=== PATIENT | male | born 1970 | race Caucasian/White ===

== ENCOUNTER 2023-06-10 10:09 | Outpatient (CLI) | payer BC, SELFPAY ==
--- NOTE | 2023-06-10 10:15 | CRLHL7_ITS ---
For Patients: As a result of the Cures Act, medical imaging exams and procedure reports are released immediately into your electronic medical record. You may view this report before your referring provider. If you have questions, please contact your health care provider. Indication: Injury and pain Technique: Right ankle 3 views. Comparison: None Findings: Bones: Alignment is normal. No fractures or bone lesions. Joint spaces: Unremarkable. Soft tissues: Soft tissue swelling. Impression: No sign of acute osseous injury. Dictated by Leroy Malhotra MD @ 06/11/2023 8:49:38 AM (Electronically Signed)
== END 2023-06-10 10:10 | disposition home or self-care (01) ==
LOC: RAD 10:12
PROVIDERS: Visit Provider Emergency Medicine Emergency Medical Services
DX: M25.571 Pain in right ankle and joints of right foot (principal)
CPT/HCPCS: 73610

== ENCOUNTER 2023-10-22 15:15 | Outpatient (RCR) | payer BC, SELFPAY | END 2023-11-07 15:28 | disposition home or self-care (01) | PROVIDERS: Visit Provider Family Medicine | DX: M25.371 Other instability, right ankle (principal); Z51.89 Encounter for other specified aftercare | CPT/HCPCS: 97110; 97161 ==

== ENCOUNTER 2024-11-24 07:59 | Outpatient (CLI) | payer BC, SELFPAY | END 2024-11-24 08:00 | disposition home or self-care (01) | LOC: NM 08:01 | PROVIDERS: PCP Surgery; Visit Provider Internal Medicine Gastroenterology | DX: K21.9 Gastro-esophageal reflux disease without esophagitis (principal); T17.908A Unspecified foreign body in respiratory tract, part unspecified causing other injury, initial encounter; R10.13 Epigastric pain | CPT/HCPCS: 78264; A9541 ==

== ENCOUNTER 2024-12-02 08:04 | Outpatient (CLI) | payer BC, SELFPAY ==
--- NOTE | 2024-12-02 08:15 | CRLHL7_ITS ---
For Patients: As a result of the Century Cures Act, medical imaging exams and procedure reports are released immediately into your electronic medical record. You may view this report before your referring provider. If you have questions, please contact your health care provider. INDICATION : GE reflux TECHNIQUE : Double-contrast upper GI. Fluoroscopy time: 2.18 minutes. COMPARISON : No comparison FINDINGS : Note: This is a remote interpretation. The exam was performed by my physician medical receptionist medical assistant. This report agrees with his preliminary interpretation. Esophageal lumen: Normal caliber. No signs of obvious mass or stricture. Gastroesophageal junction: Moderate size sliding hiatal hernia. The GE junction is widely patent. Esophageal motility: Fluoroscopically unremarkable. Gastroesophageal reflux: Spontaneous reflux to the level of the upper esophagus with distention of the hiatal hernia. Miscellaneous: Air-contrast views of the stomach are unremarkable. Small bowel is normal caliber. IMPRESSION : 1. Moderate-size sliding hiatal hernia with distention and spontaneous gastroesophageal reflux. 2. No esophageal stricture identified. 3. Motility appears normal. Dictated by Isaac Shukla MD @ 12/03/2024 8:19:26 AM (Electronically Signed)
== END 2024-12-02 08:05 | disposition home or self-care (01) ==
LOC: RAD 08:04
PROVIDERS: PCP Surgery; Visit Provider Internal Medicine Gastroenterology
DX: K21.9 Gastro-esophageal reflux disease without esophagitis (principal); K44.9 Diaphragmatic hernia without obstruction or gangrene; R10.13 Epigastric pain; T17.908A Unspecified foreign body in respiratory tract, part unspecified causing other injury, initial encounter
CPT/HCPCS: 74246

== ENCOUNTER 2025-01-15 07:30 | Outpatient (RCR) | payer BC, SELFPAY | END 2025-01-21 11:37 | disposition home or self-care (01) | PROVIDERS: PCP Surgery; Visit Provider Orthopaedic Surgery Foot and Ankle Surgery | DX: Z51.89 Encounter for other specified aftercare (principal); Z47.89 Encounter for other orthopedic aftercare; Z98.890 Other specified postprocedural states | CPT/HCPCS: 97110; 97140; 97161 ==

== ENCOUNTER 2025-05-25 21:47 | Emergency (ER) | payer BC, SELFPAY ==
--- OUTSIDE RECORDS SUMMARY | 2025-05-25 21:48 | XMS_ITS | Clinical Summary ---
Author Organization [facility] Address [address] [place] [address] Care Team Providers Care Tubing Mill Setter Name Role Phone Bernabe Gonsalves MD Primary Care Provider [phone] Allergies No known active allergies Medications aspirin chewable 81 mg chewable tablet Chew 81 mg by mouth once daily. Active omeprazole 20 mg tabletIndications: Gastroesophageal reflux disease, unspecified whether esophagitis present Take 1 Tablet (20 mg) by mouth once daily before a meal. 30 Tablet 08/18/20 24 Active rosuvastatin 5 mg tabletIndications: Hyperlipidemia, unspecified hyperlipidemia type TAKE 1 TABLET (5 MG) BY MOUTH AT BEDTIME. 90 Tablet 2 02/01/20 25 Active environmental health nurse (Dexcom G7 Planting Machine Operator) for continuous blood glucose monitor (CGM)Indications:T ype 2 diabetes mellitus without complication, without long-term current use of insulin (HC) This is for the glucose BRANCH COORDINATOR , also order the sensors. 1 Each 02/24/20 25 Active sensor (Dexcom G7 Sensor) for continuous blood glucose monitor (CGM)Indications:T ype 2 diabetes mellitus without complication, without long-term current use of insulin (HC) To be used to read blood sugars, change sensor every 10 days. This is for the glucose SENSOR, also order the environmental health nurse. 9 Each 3 02/24/20 25 Active citalopram (CELEXA) 10 mg tabletIndications: Dysthymia TAKE 1 TABLET (10 MG) BY MOUTH ONCE DAILY. 90 Tablet 1 05/02/20 25 Active citalopram 10 mg tabletIndications: Dysthymia TAKE 1 TABLET (10 MG) BY MOUTH ONCE DAILY. 90 Tablet 02/01/20 25 025 Discontinued azithromycin (ZITHROMAX) 250 mg tabletIndications: Counseling for travel Take 2 Tablets (500 mg) by mouth once daily for 3 days. For traveler's diarrhea. 6 Tablet 04/22/20 25 025 Active Problems Problem Noted Date Diagnosed Date s/p right ankle arthroscopy and debridement with microfracture of lateral talus osteochondral lesion, open lateral ligament repair. DOS: 11/05/24. Dr. Camarillo 11/25/2024 Type 2 diabetes mellitus wit hout complication, without long-term current use of insulin 10/15/2024 Adenomatous colon polyp 03/22/2021 Overview (03/22/2021): Colonoscopy 03/2021 2 polyps, repeat in 5 years Family history of colon cancer 03/22/2021 Overview (03/22/2021): Colonoscopy 03/2021 2 polyps, repeat in 5 years Obstructive sleep apnea syndrome in adult 2020 Essential hypertension 04/24/2019 Attention-deficit hyperactiv ity disorder, predominantly inattentive type 04/30/2017 01/16/2023 Dysthymia 09/15/2015 Encounters Date Type Department Care Team Description 04/29/2025 Refill [facility] [address] [place] [address] Bernabe Gonsalves MD Refill Request (Citalopram) 04/22/2025 2:00 PM CDT Office Visit [facility] [address] [place] [address] Bernabe Gonsalves MD Travel ([place]/Yellow fever /05/01-05/15/2025); Immunization/Injectio n 04/21/2025 Travel 02/22/2025 Refill [facility] [address] [place] [address] Bernabe Gonsalves MD Refill Request (Dexcom G7 sensor 10 day dev) from Last 3 Months Immunizations Immunization Administration Dates Next Due COVID-19 VACCINE SPIKEVAX (Alisha DELGADO 50MCG/0.5ML) 12YO+ PFS 09/13/2023 COVID-19 vaccine (Inventalator-Bio NTech 30mcg/0.3mL) PF, MDV 10/25/2020,10/05/2020 HepA-HepB (Twinrix) 04/22/2025 Hepatitis B (Adult) 08/20/2013 Influenza A (H1N1), Inactivated 08/10/2009 Influenza Intradermal PF 18-64 yrs 07/18/2016 Influenza, IIV3 (Age >=3 years) 07/16/2024 Influenza, IIV4 08/08/2023,,08/06/2019,2016,07/12/2015 Influenza, IIV4 (=>6mos) MDV 07/20/2020 Influenza,LAIV4 Live Intrana dejah (Flumist) 07/15/2014,07/21/2013,07/15/2012,2010 Td (Age >=7 Years) 02/07/2024 Td, Preservative Free (age > = 7 Years) 09/22/2010 Tdap 10/01/2012 Typhoid (injectable) 04/22/2025 Yellow Fever 04/22/2025 Zoster (Shingrix-RZV, recombinant) 08/13/2022, Family History Medical History Relation Name Comments Cancer-colon Father Relation Name Status Comments Father Social History Tobacco Use Types Packs/Day Years Used Date Smoking Tobacco: Never Smokeless Tobacco: Never Tobacco Cessation:Counseling Given: Yes Alcohol Use Standard Drinks/Week Comments Yes 0 (1 standard drink = 0.6 oz pur e alcohol) very occasional PHQ-2 Answer Date Recorded PHQ-2 TOTAL SCORE 0 02/01/2025 Social Connections Answer Date Recorded Do you often feel lonely or isolated from those around you? 0 02/07/2024 Financial Resource Strain Answer Date R ecorded Difficulty of Paying Living Expenses 3 02/07/2024 Difficulty of Paying Living Expenses Not on file 02/07/2024 Food Insecurity Answer Date Recorded Do you worry your food will run out before you are able to buy more? 1 02/07/2024 Transportation Needs Answer Date Record ed Does lack of transportation keep you from medica l appointments? 1 02/07/2024 Does lack of transportation keep you from work, meetings or getting things that you need? 1 02/07/2024 Housing Stability Answer Date Recorded What is your housing situation today? 1 02/07/2024 Utilities Answer Date Recorded Do you have trouble paying f or utilities (for example, heat, electricity, water, phone)? 1 02/07/2024 Sex and Gender Information Value Date Recorded Sex Assigned at Male 01/05/2021 1:06 PM CDT Legal Sex Male 2:10 PM CDT Gender Identity Male 01/05/2021 1:06 PM CDT Sexual Orientation Straight 01/05/2021 1: 06 PM CDT Obstetrics History Last Filed Vital Signs Vital Sign Reading Time Taken Comments Blood Pressure 123/84 04/22/2025 2:23 PM CDT Pulse 77 04/22/2025 2:23 PM CDT Temperature 36.3 C (97.4 F) 04/22/2025 2:23 PM CDT Respiratory Rate 16 03/21/2021 9:30 AM CDT Oxygen Saturation 98% 04/22/2025 2:23 PM CDT Inhaled Oxygen Concentration - - Weight 105.5 kg (232 lb 8 oz) 04/22/2025 2:23 PM CDT Height 187 cm (6' 1.62) 02/07/2024 8:51 AM CDT Body Mass Index 30.16 02/07/2024 8:51 AM CDT Plan of Treatment Upcoming Encounters Date Type Department Care Team (Late st Contact Info) Description 06/08/2025 3:15 PM CDT Office Visit [facility] [address] [place] [address] Bernabe Gonsalves MD [address] [place] [address] Scheduled Procedures Name Priority Associated Diagnoses Date/Ti me SURGICAL PROCEDURE (TYPE PRO CEDURE DESCRIPTION BELOW) Elective Ankle instability, right Synovitis of right ankle Chronic pain of right ankle Health Maintenance Due Date Last Done Comments Pneumococcal series for age 50+ (1 of 2 - PCV) 02/14/1991 BMI (ht and wt on same day) for age 18+ 02/06/2025 02/07/2024, 03/27/2022, 10/19/2019 Influenza Vaccine (#1) 2025 , 08/08/2023, 06/20/2021, Additional history exists Hepatitis B series for 19+ ( 3 of 3 - 19+ 3-dose series) 06/17/2025 04/22/2025, 08/20/2013 Depression screening for age 12+ 02/01/2026 02/01/2025, 01/29/2025, 02/07/2024, Additional history exists Colonoscopy through age 75 03/21/202603/21, 03/21/2021, 03/21/2021, Additional history exists Lipids for age 45-75 05/27/2029 05/27/2024, 02/07/2024, 03/27/2022, Additional history exists Tetanus booster 02/06/2034 02/07/2024, 09/13, 09/22/2010 Hepatitis C screening for ag e 18-79 Completed 03/27/2022 Zoster (shingles) series for age 50+ Completed 08/13/2022, 03/27/2022 HIV for age 15-65 Completed 02/07/2024 COVID-19 vaccine series Completed 07/16/20 24, 09/13/2023, 07/20/2021, Additional history exists Procedures Procedure Name Priority Date/Time Associated Diagnosis Comments LIPID PANEL Routine 05/27/2024 7:41 AM CDT Hyperlipidemia, unspecified hyperlipidemia type ANTI HIV 1/2 Routine 02/07/2024 9:42 AM CDT Screening for HIV (human immunodeficiency virus) ANTI HCV Routine 03/27/2022 5:05 PM CDT Need for hepatitis C screening test COLONOSCOPY SCREENING Routine 03/21/2021 8:32 AM CDT Family history of colon cancer from Last 3 Months or Most Recently Relevant to Health Maintenance Results * (ABNORMAL) LIPID PANEL (05/27/2024 7:41 AM CDT) Pathologist [facility] CHOLESTEROL,TOTAL 155 100 - 199 mg/dL 05/27/2024 2:05 PM CDT [facility] Comment: Cholesterol, Total Reference Ranges Desirable <200 mg/dL Borderline 200-239 mg/dL High >=240 mg/dL TRIGLYCERIDES 76 <150 mg/dL 05/27/2024 2:05 PM CDT [facility] HDL CHOLESTEROL 40(L) >40 mg/dL 2:05 PM CDT [facility] NON-HDL CHOLESTEROL 115 <145 mg/dl 05/27/2024 2:05 PM CDT [facility] CHOL/HDL RATIO 3.88 <4.50 05/27/2024 2:05 PM CDT [facility] LDL CHOLESTEROL 100 <=130 mg/dL 05/27/2024 2:05 PM CDT [facility] VLDL CHOLESTEROL 15 <=30 mg/dL 05/27/2024 2:05 PM CDT [facility] PROVIDER ORDERED STATUS FASTING 05/27/2024 2:05 PM CDT [facility] Blood BLOOD SPECIMEN / Unknown Venipuncture / Unknown 05/27/2024 7:41 AM CDT 05/27/2024 7:42 AM CDT Bernabe Gonsalves MD CHEMISTRY Final Resu lt [facility] [address] [place] [address], [place] * ANTI HIV 1/2 [95288.0] (02/07/2024 9:42 AM CDT) HIV-1/HIV-2 SCREEN Non-Reacti ve Non-Reacti ve 02/07/2024 4:34 PM CDT [facility] Comment:HIV-1 p24 and HIV-1/ HIV-2 Ab Not Detected. Blood BLOOD SPECIMEN / Unknown Venipuncture / Unknown 02/07/2024 9:42 AM CDT 02/07/2024 9:44 AM CDT Bernabe Gonsalves MD SEND OUTS Final Resu lt Performing Organization Address City/[facility]/ZIP Co de Phone Number [facility] [address] [place] [address], [place] * ANTI HCV (03/27/2022 5:05 PM CDT) HEPATITIS C ANTIBODY Non-React josefa Non-React josefa 03/28/2022 4:14 PM CDT [facility] Comment:Antibodies to HCV no t detected; does not exclude the possibility of exposure to HCV. Blood BLOOD SPECIMEN / Unknown Venipuncture / Unknown 03/27/2022 5:05 PM CDT 03/27/2022 5:05 PM CDT Bernabe Gonsalves MD SEND OUTS Final Resu lt Performing Organization Address [facility]/ZIP Co de Phone Number [facility] [address] [place] [address], [place] * COLONOSCOPY (03/21/2021 8:43 AM CDT) 03/21/2021 8:43 AM CDT Narrative Transcriptions Chucho Elmore MD - 03/21/2021 9:38 AM CDT Patient Name: Lreoy Malhotra Procedure Date: 03/21/2021 Gender: Male Date of : 1970 Admit Type: Outpatient Procedure: Colonoscopy Proceduralist: Chucho Elmore MD , Ada Pennington (Nurse) Referring MD: Bernabe Gonsalves Indications/Pre-Op Diagnosis: Screening in patient at increased risk: Colorectal cancer in father before age 60,Last colonoscopy: October 2015 Medications: Fentanyl 100 micrograms IV, Midazolam 4 mgIV, The level of sedation administered wasmoderate Procedure Description: The patient had risks, benefits and alternatives explained to andgave informed consent. The patient had a stable cardiopulmonary status and judged an adequate candidate for conscious sedation. The Colon CF-H180AL [id number] was passed through the anus and advancedto 6 cm into the ileum. The colonoscopy was performed withoutdifficulty. The patient tolerated the procedure well. The quality of the bowel preparation was good. The terminal ileum, ileocecal valve,appendiceal orifice, and rectum were photographed. Complications: No immediate complications. Estimated Blood Loss & Specimen: Estimated blood loss: none. Specimen collected - Yes and sent to Laboratory Findings: The perianal and digital rectal examinations were normal. A 3 mm polyp was found in the rectum. The polyp was sessile. Thepolyp was removed with a cold biopsy forceps. Resection and retrieval were complete. A 3 mm polyp was found in the sigmoid colon. The polyp was sessile.The polyp was removed with a cold snare. Resection and retrieval were complete. The exam was otherwise without abnormality on direct and retroflexion views. Impressions/Post-Op Diagnosis: - One 3 mm polyp in the rectum, removed with a cold biopsy forceps. Resected and retrieved. - One 3 mm polyp in the sigmoid colon, removed with a cold snare. Resected and retrieved. - The examination was otherwise normal on direct and retroflexionviews. Recommendation: - Patient has a contact number available for emergencies. The signsand symptoms of potential delayed complications were discussed with the patient. Return to normal activities tomorrow. Written discharge instructions were provided to the patient. - Resume previous diet. - Continue present medications. - Await pathology results. - Repeat colonoscopy in 5 years. Moderate Sedation: Moderate (conscious) sedation was administered by the endoscopy nurse and supervised by the endoscopist. The following parameters were monitored: oxygen saturation, heart rate, respiratory rate, blood pressure, adequacy of pulmonary ventilation and reponse to care. Please refer to the patient's medical record flowsheets and nursing notes for moderate sedation details. Total physician intraservice time was 20 minutes. Chucho Elmore MD 03/21/2021 9:37:43 AM This report has been signed electronically. Note Initiated On: 03/21/2021 8:43 AM Procedure Code(s): --- Professional --- 31335, Colonoscopy, flexible; with removalof tumor(s), polyp(s), or other lesion(s) bysnare technique 60771, 59, Colonoscopy, flexible; withbiopsy, single or multiple Diagnosis Code(s): --- Professional --- Z80.0, Family history of malignant neoplasmof digestive organs K62.1, Rectal polyp K63.5, Polyp of colon CPT copyright 2020 [employer]. All rights reserved. The codes documented in this report are preliminary and upon tubing mill setter reviewmay be revised to meet current compliance requirements. Scope In: 9:14:11 AM Scope Withdrawal Time 0 hours 11 minutes 33 seconds Scope Out: 9:31:45 AM Chucho Elmore MD PROCEDURE ORD Final Res ult from Last 3 Months or Most Recently Relevant to Health Maintenance Insurance [facility] Care Teams Tubing Mill Setter Relationship Specialty Start Date End Date Bernabe Gonsalves MD [address] [place] [address] PCP - General Family Practice 03/01/22
--- OUTSIDE RECORDS SUMMARY | 2025-05-25 21:48 | XMS_ITS | Clinical Summary ---
Author Organization [facility] Address [address] [place] [address] Care Team Providers Care Net Software Engineer Name Role Phone Bernabe Gonsalves MD Primary Care Provider [phone] Allergies No known active allergies Medications citalopram (CELEXA) 10 MG tablet Take 1 tablet by mouth daily 5 Active oxyCODONE (ROXICODONE) 5 MG tabletIndicatio ns:Post-op pain Take 1-2 tablets (5-10 mg) by mouth every 4 hours as needed for moderate to severe pain 12 tablet 3 Active senna-docusate (SENOKOT-S/MONICA COLACE) 8.6-50 MG tabletIndicatio ns:Post-op pain Take 1-2 tablets by mouth 2 times daily as needed for constipation (While on oral opioids.) 20 tablet 3 Active Social History Tobacco Use Types Packs/Day Years Used Date Smoking Tobacco: Never Smokeless Tobacco: Never Tobacco Cessation:Counseling Given: Not Answered Alcohol Use Standard Drinks/Week Comments Yes 0 (1 standard drink = 0.6 oz pur e alcohol) rare social Adolescent Education Answer Date Record ed Getting School Help Needed Not on file 07/06 Sex and Gender Information Value Date Recorded Sex Assigned at Not on file Legal Sex Male 12:37 PM MARINA DRY DOCK MANAGER Gender Identity Not on file Sexual Orientation Not on file Last Filed Vital Signs Vital Sign Reading Time Taken Comments Blood Pressure 125/79 02/05/2023 2:08 PM CDT Pulse 82 02/05/2023 2:08 PM CDT Temperature 36.8 C (98.2 F) 02/05/2023 2:08 PM CDT Respiratory Rate 15 02/05/2023 2:08 PM CDT Oxygen Saturation 94% 02/05/2023 2:08 PM CDT Inhaled Oxygen Concentration - - Weight 105.2 kg (232 lb) 02/05/2023 8:17 AM CDT Height 188 cm (6' 2) 02/05/2023 8:17 AM CDT Body Mass Index 29.79 02/05/2023 8:17 AM CDT Plan of Treatment Health Maintenance Due Date Last Done Comments ADVANCE CARE PLANNING 1970 ANNUAL REVIEW OF HM ORDERS 1970 CT COLONOGRAPHY 1970 DIABETES SCREENING 1970 FIT 1970 FLEX SIG 1970 sDNA (Cologuard) 1970 COLONOSCOPY 02/14/1982 COLORECTAL CANCER SCREENING 02/14/1982 HIV SCREENING 02/14/1987 HEPATITIS C SCREENING 02/14/1990 LIPID 2012 HEPATITIS B VACCINE (2 of 3 - 19+ 3-dose series) 09/17/2013 08/20/2013 PNEUMOCOCCAL VACCINE 50+ YEARS (1 of 1 - PCV) 02/14/2022 DTAP/TDAP/TD VACCINE (2 - Td or Tdap) 10/01/2022 10/01/2012, 09/22/2010 YEARLY PREVENTIVE VISIT 03/27/2023 03/27/2022 COVID-19 VACCINE ( - season) 2024 07/20/2021, 10/25/2020, 10/05/2020 PHQ-2 (once per calendar year) 2024 INFLUENZA VACCINE (#1) 2025 , 07/20/2020, 08/06/2019, Additional history exists ZOSTER VACCINE Completed 08/13/2022, 03/27/2022 HPV VACCINE (No Doses Required) Completed MENINGITIS VACCINE Aged Out No longer eligible based on patient's age to complete this topic Medical Devices Implanted Type Area Comedian Device Identifier Shelf Expiration Date Model / Serial / Lot Mesh Progrip Laparoscopic Flat Sheet [id number] - [id number] Implanted:Qty: 1 on 02/05/2023 by Eulogio Conrad MD at [facility] Mesh Left: Inguinal COVIDIEN 06/13/2025 [id number] / / [id number] Mesh Progrip Laparoscopic Flat Sheet [id number] - [id number] Implanted:Qty: 1 on 02/05/2023 by Eulogio Conrad MD at [facility] Mesh Right: Inguinal COVIDIEN 06/13/2025 [id number] / / [id number] Insurance [facility] Care Teams Net Software Engineer Relationship Specialty Start Date End Date Bernabe Gonsalves MD [address] [place] [address] PCP - General 09/26/22
--- OUTSIDE RECORDS SUMMARY | 2025-05-25 21:48 | XMS_ITS | Encounter Summary ---
Author Organization [facility] Address [address] [place] [address] Care Team Providers Care Legend Maker Name Role Phone Bernabe Gonsalves MD Primary Care Provider [phone] Eulogio Conrad MD Unavailable [phone] Encounter Details Date Type Department Care Team (Late st Contact Info) Description 11/06/2022 [facility] [place] [address] [place] [address] Shawnee Guevara Social History Tobacco Use Types Packs/Day Years Used Date Smoking Tobacco: Never Assessed Sex and Gender Information Value Date Recorded Sex Assigned at Not on file Legal Sex Male 12:37 PM QUALITY ASSURANCE/R&D LAB TECHNICIAN Gender Identity Not on file Sexual Orientation Not on file COVID-19 Exposure Response Date Recorded In the last 10 days, have yo u been in contact with someone who was confirmed or suspected to have Coronavirus/COVID-19? No / Unsure 11/08/2022 10:17 AM QUALITY ASSURANCE/R&D LAB TECHNICIAN documented as of this encounter Plan of Treatment Not on file documented as of this encounter Visit Diagnoses Not on filedocumented in this encounter Care Teams Legend Maker Relationship Specialty Start Date End Date Bernabe Gonsalves MD [address] [place] [address] PCP - General 09/26/22 Eulogio Conrad MD [address] [place] [id number] [place] [address] Assigned Surgical Provider 11/17/22 documented as of this encounter
--- OUTSIDE RECORDS SUMMARY | 2025-05-25 21:48 | XMS_ITS | Encounter Summary ---
Author Organization [facility] Address [address] [place] [address]. [place] [address] Care Team Providers Care Voice And Data Technician Name Role Phone Bernabe Gonsalves MD Primary Care Provider [phone] Eulogio Conrad MD Unavailable Encounter Details Date Type Department Care Team (Late st Contact Info) Description 11/21/2022 [facility] [place] [address] [place] [address] Jessi Torres Social History Tobacco Use Types Packs/Day Years Used Date Smoking Tobacco: Never Smokeless Tobacco: Never Sex and Gender Information Value Date Recorded Sex Assigned at Not on file Legal Sex Male 12:37 PM CAR HOP Gender Identity Not on file Sexual Orientation Not on file COVID-19 Exposure Response Date Recorded In the last 10 days, have yo u been in contact with someone who was confirmed or suspected to have Coronavirus/COVID-19? No / Unsure 11/08/2022 10:17 AM CAR HOP documented as of this encounter Plan of Treatment Not on file documented as of this encounter Visit Diagnoses Not on filedocumented in this encounter Care Teams Voice And Data Technician Relationship Specialty Start Date End Date Bernabe Gonsalves MD [address] [facility] [place] [address] PCP - General 09/26/22 Eulogio Conrad MD [id number] [place] [address] Assigned Surgical Provider 11/17/22 documented as of this encounter
[2025-05-25 21:50] VITALS: BP 137/86; PULSE 86; RESP 16; TEMP 36.6; O2SAT 98; BMI 28.9
[2025-05-25] MEDS: LIDOCAINE 1%-EPI 1:100,000 5 ML INFILTRATI (22:00)
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
[2025-05-25 22:24] VITALS: BP 129/84; PULSE 81; RESP 16; TEMP 36.6; O2SAT 98
[2025-05-25 22:25] VITALS: BP 129/84; PULSE 81; RESP 16; TEMP 36.6
== END 2025-05-25 22:39 | disposition home or self-care (01) ==
PROVIDERS: Emergency Provider Student in an Organized Health Care Education/Training Program; PCP Surgery
DX: S81.812A Laceration without foreign body, left lower leg, initial encounter (principal); W45.8XXA Other foreign body or object entering through skin, initial encounter; W21.89XA Striking against or struck by other sports equipment, initial encounter; Y93.55 Activity, bike riding
CPT/HCPCS: 12002; 99283